=== PATIENT | female | born 1990 | race Asian ===

== ENCOUNTER 2017-04-21 04:33 | Inpatient (IN) | payer BC ==
[2017-04-21] MEDS ORDERED: LIDOCAINE 1% (PF) 10 MG/ML (30 ML SDV) SQ PRN (05:11)
[2017-04-21] MEDS ORDERED: CARBOPROST TROMETHAMINE 250 MCG/ML 1 ML AMP IM PRN (05:11)
[2017-04-21] MEDS ORDERED: OXYTOCIN 10 UNIT/ML 1 ML VIAL IM PRN (05:11)
[2017-04-21] MEDS ORDERED: TERBUTALINE 1 MG/ML VIAL SQ PRN (05:11)
[2017-04-21] MEDS ORDERED: METHYLERGONOVINE 0.2 MG/ML 1 ML AMP IM PRN (05:11)
[2017-04-21] MEDS ORDERED: BUTORPHANOL 1 MG/ML 1 ML VIAL IV PRN (05:13)
[2017-04-21] MEDS: LACTATED RINGERS 1,000 ML IV SCH ×3 (05:37→15:45)
[2017-04-21 05:53] LABS: Basophils % (A) 0 %; Eosinophils # (A) 0.1 k/uL (0-0.7); Eosinophils % (A) 1 %; HCT 33.9 % (34.0-46.0); HGB 11.5 gm/dL (11.4-16.0); Lymphocytes # (A) 2.8 k/uL (1.0-4.8); Lymphocytes % (A) 30 %; MCH 30.6 pg (25.0-35.0); MCHC 34.1 g/dL (31.0-37.0); MCV 89.9 fL (80.0-100.0); Mean Platelet Volume 8.8; Monocytes # (A) 0.6 k/uL (0-1.0); Monocytes % (A) 6 %; Neutrophils # (A) 5.7 k/uL (1.3-7.7); Neutrophils % (A) 61 %; Platelet Count 251 k/uL (150-450); RBC 3.77 m/uL (3.80-5.40); RDW 13.3 % (11.5-15.5); WBC 9.3 k/uL (3.8-10.6)
[2017-04-21 05:57] VITALS: BMI 33.5
[2017-04-21] MEDS: OXYTOCIN 20 UNITS/1000 ML NS 1,000 ML IV SCH (06:39)
[2017-04-21] MEDS ORDERED: fentaNYL (PF) 50 MCG/ML 5 ML AMP ONE (10:40)
[2017-04-21] MEDS ORDERED: SODIUM CHLORIDE 0.9% 100 ML BAG ONE (10:40)
[2017-04-21] MEDS ORDERED: BUPIVACAINE (PF) 0.25% 30 ML VIAL ONE (10:40)
--- NOTE | 2017-04-21 10:58 | P.HPOB ---
History of Present Illness H&P Date: 04/21/17 Chief Complaint: 39-0/7 weeks, spontaneous rupture of membranes The patient is a 26-year-old 3 para 0020 admitted at 39-0/7 weeks as established by last menstrual period and confirmed by second trimester ultrasound. She is admitted with documented spontaneous rupture of membranes of clear fluid. On admission, all signs are reassuring. Her has been uncomplicated though she is known to be rubella nonimmune. Group B strep status is negative. Obstetrical history: 3 para 0020 with 2 previous elective interruptions of . Current statistics are listed in history present illness. EDC of 04/28/2017 was established by last menstrual period and confirmed by second trimester ultrasound. Laboratory workup demonstrates a blood type of A+ with a negative antibody screen. Rubella status is nonimmune the remainder of the laboratory workup was within normal limits. Early Glucola and second trimester Glucola were both within normal limits. Group B strep status is negative. Gynecologic history: Unremarkable with no history of any infections to include STDs. Review of Systems Review of systems is confined to history of present illness. Past Medical History Past Medical History: No Reported History History of Any Multi-Drug Resistant Organisms: None Reported Past Surgical History: Orthopedic Surgery Past Anesthesia/Blood Transfusion Reactions: No Reported Reaction Past Psychological History: No Psychological Hx Reported Smoking Status: Never smoker Past Alcohol Use History: None Reported Past Drug Use History: None Reported - Past Family History Father Family Medical History: Cancer Medications and Allergies Home Medications Medication Instructions Recorded Confirmed Type Pnv No.95/Ferrous Fum/Folic AC 04/21/17 History [ Multivitamin Tablet] Allergies Allergy/AdvReac Type Severity Reaction Status Date / Time No Known Allergies Allergy Verified 04/21/17 04:42 Exam - Vital Signs Vital signs: Vital Signs Temp Pulse Resp BP Pulse Ox 04/21/17 05:10 96.7 F L 89 16 132/67 97 04/21/17 05:05 96.7 F L 89 16 132/67 97 Intake and Output 04/20/17 04/21/17 04/21/17 22:59 06:59 14:59 Other: # Voids 1 1 Weight 88.451 kg In general, this is a well-developed, well-nourished female in no acute distress. Her heart has a regular rhythm and rate without murmur. Her lungs are clear to auscultation bilaterally in all johnson. Her abdomen is gravid, nondistended, has normal active bowel sounds, is soft, nontender, and without any palpable masses aside from uterine fundus. Her extremities are without any cyanosis, clubbing, or significant edema and are nontender to palpation bilaterally. Digital cervical examination performed by the nursing staff temperature the cervix to be 6 cm dilated, 90% effaced, the vertex in presentation at -1 station. Spontaneous rupture of membranes has been confirmed with clear fluid. Results Result Diagrams: 04/21/17 05:45 Abnormal Lab Results - Last 24 Hours (Table) 04/21/17 Range/Units 05:45 RBC 3.77 L (3.80-5.40) m/uL Hct 33.9 L (34.0-46.0) % Assessment and Plan (1) Spontaneous rupture of amniotic membranes Current Visit: Yes Status: Acute Code(s): [id number] - SNOMED Code(s): 271422877 (2) Active labor at term Current Visit: Yes Status: Acute Code(s): LVI2790 - SNOMED Code(s): 27147449 Plan: The patient has been admitted for active management of labor. Pitocin augmentation was started. She is currently having an epidural catheter placed for analgesia. She will have close maternal and surveillance and expectant management will be practiced.
[2017-04-21] MEDS ORDERED: BUPIVACAINE (PF) 0.25% 25 ML, fentaNYL (PF) 200 MCG in SODIUM CHLORIDE 0.9% 71 ML EPIDURAL ONE (14:32)
[2017-04-21] MEDS ORDERED: ZOLPIDEM 5 MG TAB PO PRN (18:53)
[2017-04-21] MEDS ORDERED: SIMETHICONE 80 MG CHEWABLE PO PRN (18:53)
[2017-04-21] MEDS ORDERED: LANOLIN CREAM 5 GM TUBE TOPICAL PRN (18:53)
[2017-04-21] MEDS ORDERED: diphenhydrAMINE 50 MG/ML 1 ML VIAL IVP PRN ×2 (18:53)
[2017-04-21] MEDS ORDERED: Acetaminophen-Codeine 300-30mg TAB PO PRN ×2 (18:53)
[2017-04-21] MEDS ORDERED: BENZOCAINE/MENTHOL SPRAY 1 GM/SPRAY AEROSOL TOPICAL PRN (18:53)
[2017-04-21] MEDS ORDERED: diphenhydrAMINE 25 MG CAP PO PRN (18:53)
[2017-04-21] MEDS ORDERED: ACETAMINOPHEN TAB 325 MG TAB PO PRN (18:53)
[2017-04-21] MEDS ORDERED: HYDROCORTISONE 2.5% RECTAL CREAM 30 GM TUBE RECTAL PRN (18:53)
[2017-04-21] MEDS ORDERED: diphenhydrAMINE 50 MG CAP PO PRN (18:53)
[2017-04-21] MEDS ORDERED: WITCH HAZEL 1 EACH MED..PAD TOPICAL PRN (18:53)
--- NOTE | 2017-04-21 18:56 | P.PROBDLV ---
Vaginal Delivery Note - . Vaginal Delivery Note: The patient is a 26-year-old 1 para 0 admitted at 39-0/7 weeks by good dating parameters. She is admitted in very early labor with documented spontaneous rupture of membranes of clear fluid. Her had been uncomplicated though she is rubella nonimmune. On labor and delivery, all signs were reassuring. She had Pitocin augmentation started and made progress to the active phase of labor at which time an epidural catheter was placed for analgesia. She then made fairly slow progress to the active phase but ultimately did progress to complete. She then pushed over the course of 1-1/2 hours to a normal spontaneous vaginal delivery of a viable 7 lbs. 11 oz. baby boy delivered in the left occiput anterior position. The placenta was delivered spontaneously, intact, and grossly normal with a grossly normal three- vessel cord. There was a second-degree midline perineal laceration noted which was repaired in standard fashion using 3-0 chromic catgut without difficulty. Estimated blood loss for the case is approximately 250 mL. There were no complications. All sponge, instrument, and needle counts were correct. Both mother and infant are resting comfortably in recovery.
[2017-04-21] MEDS ORDERED: OXYTOCIN 20 UNITS/1000 ML NS 1,000 ML IV SCH (19:00)
[2017-04-21] MEDS ORDERED: MEASLES-MUMPS-RUBELLA VACC/PF 12,500 UNIT/0.5 ML VIAL SQ ONE (19:34)
[2017-04-22] MEDS: SENNOSIDES-DOCUSATE SODIUM 1 EACH TAB PO SCH ×3 (05:18→20:01)
[2017-04-22] MEDS: IBUPROFEN 600 MG TAB PO PRN ×2 (08:58→20:01)
--- NOTE | 2017-04-22 11:51 | P.DS ---
Providers Date of admission: 04/21/17 05:01 Expected date of discharge: 04/22/17 Attending physician: Elizabeth Rodríguez Primary care physician: Stated None - Discharge Diagnosis(es) (1) Spontaneous rupture of amniotic membranes Current Visit: Yes Status: Acute (2) Active labor at term Current Visit: Yes Status: Acute (3) Normal spontaneous vaginal delivery Current Visit: Yes Status: Acute Hospital Course: The patient is a 26-year-old 3 para 0020 admitted at 39-0/7 weeks by good dating parameters. She is admitted with documented spontaneous rupture of membranes of clear fluid. Her was uncomplicated though she is rubella nonimmune. Group B strep status is negative. On labor and delivery, she had Pitocin augmentation started and the an epidural catheter placed around the onset of the active phase of labor. She made relatively slow progress through the active phase but did progress to complete and then pushed to a normal spontaneous vaginal delivery of a viable 7 lbs. 11 oz. baby boy with Apgars of 8 at 1 minute and 9 at 5 minutes. Her course was unremarkable with vital signs remaining stable and her temperature was afebrile throughout. She was deemed stable for discharge by day #1 and was discharged home to follow-up in the office in 6 weeks' time routinely. Discharge instructions included calling for any significantly increased bleeding or foul-smelling lochia, significantly increased fever or abdominal pain, perineal complaints, breast complaints, or anything else that concerned her. She was additionally instructed to have nothing in the vagina for at least 6 weeks time to include intercourse. She understood her instructions and agrees to follow up as noted above. Discharge medications included only over- the-counter analgesic pain medications as well as continued vitamins as she has opted to breast-feed. Maternal blood type is A+ and rubella status is nonimmune. She therefore was to receive the MMR vaccination prior to discharge. Procedures: #1. Pitocin augmentation #2. Epidural analgesia #3. Normal spontaneous vaginal delivery #4. Repair of perineal laceration Patient Condition at Discharge: Good Plan - Discharge Summary New Discharge Prescriptions: No Action Pnv No.95/Ferrous Fum/Folic AC [ Multivitamin Tablet] Discharge Medication List Pnv No.95/Ferrous Fum/Folic AC [ Multivitamin Tablet] 04/21/17 [History ] Follow up Appointment(s)/Referral(s): Elizabeth Rodríguez DO [Doctor of Osteopathic Medicine] - 6 Weeks Discharge Disposition: HOME SELF-CARE
[2017-04-22] MEDS: LACTATED RINGERS 1,000 ML IV SCH (20:13)
[2017-04-22] MEDS: OXYTOCIN 20 UNITS/1000 ML NS 1,000 ML IV SCH (20:14)
[2017-04-23 02:30] VITALS: PULSE 71; RESP 16; TEMP 98
[2017-04-23] MEDS: IBUPROFEN 600 MG TAB PO PRN (07:53)
--- NOTE | 2017-04-23 08:35 | P.PN ---
Subjective Progress Note Date: 04/23/17 Principal diagnosis: PPD # 2 Physical 26-year-old 1 para 1 that had a spontaneous vaginal delivery 2 days ago. She is ambulating and voiding, lochia is minimal. She is breast- feeding without difficulty. She states her pain is controlled with oral medications. She denies any complaints and is ready for discharge home on this day #2. Objective - Vital Signs Vital signs: Vital Signs Temp 98.0 F 04/23/17 00:00 Pulse 71 04/23/17 00:00 Resp 16 04/23/17 00:00 BP 101/55 04/23/17 00:00 Pulse Ox 97 04/22/17 16:00 Intake & Output 04/22/17 04/23/17 04/23/17 18:59 06:59 18:59 Other: # Voids 1 2 - Constitutional General appearance: Present: average body habitus, cooperative, no acute distress - Gastrointestinal Gastrointestinal Comment(s): Uterus firm and below the umbilicus - Psychiatric Psychiatric: Present: appropriate affect - Labs CBC & Chem 7: 04/21/17 05:45 Assessment and Plan (1) Active labor at term Current Visit: Yes Status: Acute Code(s): [id number] - SNOMED Code(s): 47296816 (2) Normal spontaneous vaginal delivery Current Visit: Yes Status: Acute Code(s): O80 - ENCOUNTER FOR FULL-TERM UNCOMPLICATED DELIVERY SNOMED Code(s): 34443841 (3) Perineal laceration during delivery Current Visit: Yes Status: Acute Code(s): O70.9 - PERINEAL LACERATION DURING DELIVERY, UNSPECIFIED SNOMED Code(s): 157175573 (4) Rubella non-immune status, antepartum Current Visit: Yes Status: Acute Code(s): O99.89 - OTH DISEASES AND CONDITIONS COMPL PREG/CHLDBRTH; Z28.3 - UNDERIMMUNIZATION STATUS SNOMED Code(s ): 533468436 (5) Spontaneous rupture of amniotic membranes Current Visit: Yes Status: Acute Code(s): SCQ5767 - SNOMED Code(s): 578698940 Plan: Plan discharge home today, perception for breast pump and oral Motrin is on chart. Patient is to follow-up in 4 weeks. Discharge instructions are reviewed with the patient in the patient's all questions were answered. Time with Patient: Less than 30
[2017-04-23 11:23] VITALS: BP 116/65
[2017-04-23] MEDS: SENNOSIDES-DOCUSATE SODIUM 1 EACH TAB PO SCH (11:23)
== END 2017-04-23 12:25 | disposition home or self-care (01) | DRG 775 ==
LOC: FBPOP 04:33 → 4FBP 05:01
PROVIDERS: ADMIT Obstetrics & Gynecology; ATTEND Obstetrics & Gynecology Obstetrics
PROC: 10E0XZZ Delivery of Products of Conception, External Approach (ICD-10-PCS; principal; 2017-04-21)
PROC: 0KQM0ZZ Repair Perineum Muscle, Open Approach (ICD-10-PCS; 2017-04-21)
PROC: 00HU33Z Insertion of Infusion Device into Spinal Canal, Percutaneous Approach (ICD-10-PCS; 2017-04-21)
PROC: 3E0R3BZ Introduction of Anesthetic Agent into Spinal Canal, Percutaneous Approach (ICD-10-PCS; 2017-04-21)
DX: O70.1 Second degree perineal laceration during delivery (principal); Z37.0 Single live birth; Z28.3 Underimmunization status; Z3A.39 39 weeks gestation of pregnancy
CPT/HCPCS: 59025; 84112; 85025; 88307; 90471; 90707; 99213

== ENCOUNTER 2020-09-11 06:32 | Inpatient (IN) | payer BC ==
[2020-09-11] MEDS ORDERED: METHYLERGONOVINE 0.2 MG/ML 1 ML AMP IM PRN (06:39)
[2020-09-11] MEDS ORDERED: LIDOCAINE 0.5% (PF) 5 MG/ML (50 ML SDV) SQ PRN (06:39)
[2020-09-11] MEDS ORDERED: OXYTOCIN 10 UNIT/ML 1 ML VIAL IM PRN (06:39)
[2020-09-11] MEDS ORDERED: TERBUTALINE 1 MG/ML VIAL SQ PRN (06:39)
[2020-09-11] MEDS ORDERED: CARBOPROST TROMETHAMINE 250 MCG/ML 1 ML AMP IM PRN (06:39)
[2020-09-11] MEDS ORDERED: LACTATED RINGERS 1,000 ML IV SCH (06:45)
[2020-09-11] MEDS ORDERED: OXYTOCIN 30 UNITS/500 ML NS 30 UNIT in SALINE 1 500ML.BAG IV SCH (06:45)
--- NOTE | 2020-09-11 07:03 | P.HPOB ---
History of Present Illness H&P Date: 09/11/20 This is a 29-year-old female 2 para 1001 EDC 09/24/2020 at 38 and one sevenths weeks' gestation who presented to labor and delivery with an urge to push. Fetus is been active throughout the . She denied vaginal bleeding or fluid leakage. She was judged to be completely dilated upon admission. Past medical history is significant for asthma, exercise-induced. History of herpes simplex in the past, no lesions or prodrome at this time. Past surgical history voluntary termination of 2, arm surgery 2004. Current medications vitamins, Valtrex daily. ALLERGIES none known. Family history significant for brain cancer, leukemia, asthma. Social history patient has never been a smoker, she denies alcohol or drug use. She is . history blood type is A+, rubella status nonimmune. VDRL testing, hepatitis B surface antigen, HIV testing, gonorrhea and chlamydia cultures negative group B strep cultures negative. One-hour Glucola 100. On exam patient is 5 foot 3 inches, 194 pounds, vital signs are stable. Physical exam is limited as patient is completely dilated, +1 station, vertex presentation. heart rate is reassuring. Impression: 38 and one sevenths week intrauterine , imminent delivery. All signs reassuring. Plan: Delivery now. Review of Systems Constitutional: Reports as per HPI Past Medical History Past Medical History: No Reported History, Asthma History of Any Multi-Drug Resistant Organisms: None Reported Past Surgical History: Orthopedic Surgery Past Anesthesia/Blood Transfusion Reactions: No Reported Reaction Past Psychological History: No Psychological Hx Reported Past Alcohol Use History: None Reported Past Drug Use History: None Reported - Past Family History Father Family Medical History: Cancer Medications and Allergies Home Medications Medication Instructions Recorded Confirmed Type Pnv No.95/Ferrous Fum/Folic AC 04/21/17 History [ Multivitamin Tablet] Allergies Allergy/AdvReac Type Severity Reaction Status Date / Time No Known Allergies Allergy Verified 04/21/17 04:42 Exam Intake and Output 09/10/20 09/11/20 09/11/20 22:59 06:59 14:59 Other: Weight 87.997 kg See dictation under HPI please Assessment and Plan Assessment: 38 and one sevenths weeks intrauterine , completely dilated and pushing. All signs otherwise reassuring. Plan: Delivery now Time with Patient: Less than 30
[2020-09-11] MEDS ORDERED: ACETAMINOPHEN TAB 325 MG TAB PO PRN (07:06)
[2020-09-11] MEDS ORDERED: BENZOCAINE/MENTHOL SPRAY 1 GM/SPRAY AEROSOL TOPICAL PRN (07:06)
[2020-09-11] MEDS ORDERED: SIMETHICONE 80 MG CHEWABLE PO PRN (07:06)
[2020-09-11] MEDS ORDERED: ZOLPIDEM 5 MG TAB PO PRN (07:06)
[2020-09-11] MEDS ORDERED: HYDROCORTISONE 2.5% RECTAL CREAM 30 GM TUBE RECTAL PRN (07:06)
[2020-09-11] MEDS ORDERED: diphenhydrAMINE 50 MG CAP PO PRN (07:06)
[2020-09-11] MEDS ORDERED: diphenhydrAMINE 50 MG/ML 1 ML VIAL IVP PRN ×2 (07:06)
[2020-09-11] MEDS ORDERED: MEASLES-MUMPS-RUBELLA VACC/PF 12,500 UNIT/0.5 ML VIAL SQ ONE (07:06)
[2020-09-11] MEDS ORDERED: diphenhydrAMINE 25 MG CAP PO PRN (07:06)
[2020-09-11] MEDS ORDERED: LANOLIN CREAM 5 GM TUBE TOPICAL PRN (07:06)
--- NOTE | 2020-09-11 07:06 | P.PROBDLV ---
Vaginal Delivery Note - . Vaginal Delivery Note: This is a 29-year-old female 4 para 1021 EDC 09/24/2020 at 38 and one sevenths weeks' gestation who presented to the triage area with an urge to push. She was judged be completely dilated. Perineal body is quickly prepped and draped. With 1 push the 's head delivered occiput anterior and restituted accordingly. There was a nuchal cord 2 that was reduced on the perineal body. Patient very quickly delivered the head and shoulders at 0642 hours. Or opharynx, nasopharynx, and external nares all bulb suctioned. The umbilical cord ligated, baby was handed to waiting nurses for evaluation where scores of 9 and 9 at one and 5 minutes respectively were given. Infant weighed 3225 g or 7 pounds 1.8 ounces. Placenta delivered spontaneously, it was inspected and noted to be intact with trivascular cord at 0644 hours. Perineal body was and inspected. Careful inspection of the cervix, vagina, perineum, periurethral, and perirectal areas revealed a small midline first-degree laceration. This was injected with 1% lidocaine and repaired in the usual fashion using 3-0 Vicryl suture. All sponge needle and enhancement counts are correct. Uterus is massaged. Bleeding is appropriate. Patient is allowed to begin the bonding experience with her infant. Please note that history is significant for positive HSV, no lesions, no prodrome, no issues on Valtrex daily.
[2020-09-11 07:46] LABS: Basophils # (A) 0.1 k/uL (0-0.2); Basophils % (A) 0 %; Eosinophils # (A) 0.2 k/uL (0-0.7); Eosinophils % (A) 2 %; HGB 12.5 gm/dL (11.4-16.0); Lymphocytes # (A) 3.9 k/uL (1.0-4.8); Lymphocytes % (A) 37 %; MCH 32.7 pg (25.0-35.0); MCHC 34.7 g/dL (31.0-37.0); MCV 94.2 fL (80.0-100.0); Monocytes # (A) 0.6 k/uL (0-1.0); Monocytes % (A) 6 %; Neutrophils # (A) 5.6 k/uL (1.3-7.7); Neutrophils % (A) 52 %; Platelet Count 238 k/uL (150-450); RBC 3.82 m/uL (3.80-5.40); RDW 12.9 % (11.5-15.5); WBC 10.6 k/uL (3.8-10.6)
[2020-09-11] MEDS: IBUPROFEN 600 MG TAB PO SCH ×4 (09:42→22:10)
[2020-09-11] MEDS: SENNOSIDES-DOCUSATE SODIUM 1 EACH TAB PO SCH ×2 (09:55→19:54)
[2020-09-12 06:45] VITALS: TEMP 97.7
[2020-09-12] MEDS: SENNOSIDES-DOCUSATE SODIUM 1 EACH TAB PO SCH (08:39)
[2020-09-12] MEDS: IBUPROFEN 600 MG TAB PO SCH (08:39)
--- NOTE | 2020-09-12 08:54 | P.DS ---
Providers Date of admission: 09/11/20 06:33 Expected date of discharge: 09/12/20 Attending physician: Elizabeth Rodríguez Primary care physician: Stated None Hospital Course: This is a 29-year-old female 4 para 10-1 EDC 09/24/2020 at 38 and one sevenths weeks' gestation who came in in active labor from home. Group B strep cultures negative, blood type A positive, rubella status nonimmune. Please see dictated history and physical for details. Patient delivered very quickly in the triage area, giving vaginally to a liveborn female with scores of 9 and 9 at one and 5 minutes respectively. There was a nuchal cord 2 that was reduced on the perineal body. Infant weighed 325 g or 7 pounds 1.8 ounces. A small first-degree perineal laceration was easily repaired, estimated blood loss 150 mL's. Please see my dictated delivery note for details. This morning the patient and her are doing well. Patient is voiding, ambulating, passing flatus without difficulty. Vital signs are stable and she is afebrile. Fundus is firm and in the midline, symmetric and 18 week size. Extremities are negative for edema. [place] infant is doing well and has been discharged. Patient will follow-up in the office with her primary roving department end finder in 4 weeks. She is reminded no intercourse, tampons or douching. She will use [id number] Advil or Aleve, or Motrin as needed for pain. She is instructed to call with any fevers shakes or chills, foul smelling or copious lochia, difficulties breast-feeding, with any pain not alleviated by [id number] products, or indeed with any concerns. We've briefly discussed contraceptive options and she will discuss this with her primary physician in the office. Assessment: Very well day #1 Patient Condition at Discharge: Good Plan - Discharge Summary Discharge Rx Participant: No New Discharge Prescriptions: No Action Pnv No.95/Ferrous Fum/Folic AC [ Multivitamin Tablet] 1 tab PO DAILY valACYclovir [Valtrex] 500 mg PO DAILY Aspirin [Adult Low Dose Aspirin EC] 81 mg PO DAILY Discharge Medication List Pnv No.95/Ferrous Fum/Folic AC [ Multivitamin Tablet] 1 tab PO DAILY 04/21/17 [History] Aspirin [Adult Low Dose Aspirin EC] 81 mg PO DAILY 09/11/20 [History] valACYclovir [Valtrex] 500 mg PO DAILY 09/11/20 [History] Follow up Appointment(s)/Referral(s): Elizabeth Rodríguez DO [Doctor of Osteopathic Medicine] - 4 Weeks Discharge Disposition: HOME SELF-CARE
[2020-09-12 09:08] VITALS: BP 96/55; PULSE 59; RESP 18
== END 2020-09-12 13:00 | disposition home or self-care (01) | DRG 806 ==
LOC: FBPOP 06:32 → 4FBP 06:33
PROVIDERS: ADMIT Obstetrics & Gynecology; ATTEND Obstetrics & Gynecology Obstetrics
PROC: 10E0XZZ Delivery of Products of Conception, External Approach (ICD-10-PCS; principal; 2020-09-11)
PROC: 0HQ9XZZ Repair Perineum Skin, External Approach (ICD-10-PCS; 2020-09-11)
PROC: 4A0HX4Z Measurement of Products of Conception, Cardiac Electrical Activity, External Approach (ICD-10-PCS; 2020-09-11)
DX: O69.81X0 Labor and delivery complicated by cord around neck, without compression, not applicable or unspecified (principal); O98.32 Other infections with a predominantly sexual mode of transmission complicating childbirth; Z37.0 Single live birth; O70.0 First degree perineal laceration during delivery; A60.09 Herpesviral infection of other urogenital tract; J45.990 Exercise induced bronchospasm; Z3A.38 38 weeks gestation of pregnancy
CPT/HCPCS: 85025; 86850; 86900; 86901; 90707